=== PATIENT | male | born 1970 | race Caucasian/White ===

== ENCOUNTER → 2017-11-23 | Outpatient (REF) | payer OTHER ==
[2017-11-23 12:39] LABS: RBC, URINE 0-1 /hpf (0-3); WBC, URINE 0-1 /hpf (0-3)
[2017-11-23 12:40] LABS: BACTERIA, URINE NONE SEEN; HYALINE CAST, URINE NONE SEEN /lpf (0-1); MICROSCOPIC EXAM PERFORMED; SQUAMOUS EPITHELIAL CELL URINE NONE SEEN /hpf (SMALL AMT); TRICHOMONAS, URINE NONE SEEN
== END ==
LOC: M LAB REF 11:43
DX: A59.9 Trichomoniasis, unspecified (principal)

== ENCOUNTER → 2019-07-06 | Outpatient (CLI) | payer OTHER ==
[2019-07-06 11:24] LABS: FREE T4 0.86 NG/DL (0.76-1.46); THYROID STIMULATING HORMONE 4.04 uIU/ML (0.358-3.740)
== END ==
LOC: M LAB 09:56
PROVIDERS: ATTEND Internal Medicine Gastroenterology
DX: R19.4 Change in bowel habit (principal)

== ENCOUNTER → 2019-08-19 | Outpatient (REF) | payer OTHER ==
[2019-08-21 11:47] LABS: CLOSTRIDIUM DIFFICILE PCR NEGATIVE (NEGATIVE)
== END ==
LOC: M LAB REF 14:38
PROVIDERS: ATTEND Internal Medicine Gastroenterology
DX: R19.4 Change in bowel habit (principal)

== ENCOUNTER 2019-09-23 09:08 | Day surgery (SDC) | payer OTHER ==
[~2019-09-23] VITALS: Ht 175.3 cm; Wt 102.5 kg
[~2019-09-23 09:08] MED LIST: CVS1CAP2 PO; LOVA40TA PO; NS 1,000 ML IV ONE; SILD50TA2 PO; ZOLO50TA PO
[2019-09-23] MEDS ORDERED: LIDOCAINE 2% INJ 100 MG/5 ML SDV (FOR ANES.) As Ordered ONE (10:09)
[2019-09-23] MEDS ORDERED: propofoL 200 MG/20 ML VIAL As Ordered ONE ×2 (10:09→10:16)
--- NOTE | 2019-09-23 10:33 | ROOR ---
Patient Name: Buddy Cochran Procedure Date: 09/23/2019 10:03 AM Date of : 1970 Age: 49 Room: [facility] Gender: Male Note Status: Finalized Procedure: Colonoscopy Indications: Change in bowel habits, Clinically significant diarrhea of unexplained origin Providers: Angel GRULLON MD Referring MD: DIAMOND SANTIAGO JR, MD Requesting Provider: Medicines: Monitored Anesthesia Care Complications: No immediate complications. Procedure: Pre-Anesthesia Assessment: - The heart rate, respiratory rate, oxygen saturations, blood pressure, adequacy of pulmonary ventilation, and response to care were monitored throughout the procedure. The Colonoscope was introduced through the anus and advanced to the cecum, identified by appendiceal orifice and ileocecal valve. The colonoscopy was performed without difficulty. The patient tolerated the procedure well. The quality of the bowel preparation was good. Findings: The perianal and digital rectal examinations were normal. Mild sigmoid diverticulosis and small internal hemorrhoids. The entire examined colon appeared normal on direct and retroflexion views. Biopsies for histology were taken with a cold forceps for evaluation of microscopic colitis. Impression: - Mild sigmoid diverticulosis and moderate internal hemorrhoids. - The entire colon is otherwise normal on direct and retroflexion views. - Biopsies were taken with a cold forceps for evaluation of microscopic colitis. Recommendation: - Use fiber, for example Citrucel, Fibercon, Konsyl or Metamucil. - Telephone endoscopist for pathology results in 2 weeks. - Consider Low lactose/Lactose free diet trial for 1 week. Angel Grullon MD Angel GRULLON MD 09/23/2019 10:32:32 AM Electronically signed by Angel GRULLON MD Number of Addenda: 0 Note Initiated On: 09/23/2019 10:03 AM Estimated Blood Loss: Estimated blood loss: none.
[2019-09-23 11:03] VITALS: BP 137/93
== END 2019-09-23 11:07 | disposition home or self-care (01) ==
LOC: M OPP 09:08
PROVIDERS: ATTEND Internal Medicine Gastroenterology
DX: K57.30 Diverticulosis of large intestine without perforation or abscess without bleeding (principal); G47.30 Sleep apnea, unspecified; F17.210 Nicotine dependence, cigarettes, uncomplicated; R19.4 Change in bowel habit; Z79.899 Other long term (current) drug therapy

== ENCOUNTER → 2021-10-16 | Outpatient (REF) | payer OTHER ==
[~2021-10-16] MED LIST changes: -NS 1,000 ML IV ONE
== END ==
LOC: M SMT 17:05
PROVIDERS: ATTEND Urology
DX: Z30.2 Encounter for sterilization (principal)

== ENCOUNTER 2024-11-22 08:22 | Day surgery (SDC) | payer OTHER ==
[~2024-11-22] VITALS: Ht 175.3 cm; Wt 103.1 kg
[~2024-11-22 08:22] MED LIST changes: +ATOR40TA75 PO; +FLUT05CR TOP; +GLYCOPYRROLATE INJ 0.2 MG/ML 2 ML VIAL As Ordered ONE; +LIDOCAINE 2% 100MG/5ML SDV (FOR ANES.) As Ordered ONE; +PROBCAP14 PO; +propofoL 200 MG/20 ML VIAL As Ordered ONE
[2024-11-22 10:30] VITALS: TEMP 98.1
[2024-11-22 10:45] VITALS: BP 167/91; O2SAT 98
== END 2024-11-22 10:49 | disposition home or self-care (01) ==
LOC: M OPP 08:22
PROVIDERS: ATTEND Internal Medicine Gastroenterology
DX: D12.4 Benign neoplasm of descending colon (principal); K57.30 Diverticulosis of large intestine without perforation or abscess without bleeding; K64.8 Other hemorrhoids; Z86.0100 Personal history of colon polyps, unspecified; G47.30 Sleep apnea, unspecified; Z79.899 Other long term (current) drug therapy
CPT/HCPCS: 45385; 88305; J1596